=== PATIENT | male | born 1965 | race African-American/Black ===

== ENCOUNTER → 2024-01-07 | Outpatient (REF) | payer OTHER ==
[~2024-01-07] MED LIST: CIALIS5 MG PO; FAMOTIDINE20 MG PO; FLOMAX0.4 MG PO; NEURONTIN400 MG PO; ONDANSETRON ODT4 MG PO; PANTOPRAZOLE SO40 MG PO
== END ==
LOC: US 11:51
PROVIDERS: ATTEND Nurse Practitioner
DX: R14.0 Abdominal distension (gaseous) (principal); R10.11 Right upper quadrant pain; K59.09 Other constipation
CPT/HCPCS: 76700